=== PATIENT | female | born 2000 | race African-American/Black ===

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

== ENCOUNTER 2025-01-08 22:37 | Emergency (ER) | payer MEDICAID ==
[~2025-01-08] VITALS: Ht 165.1 cm; Wt 120.0 kg
[2025-01-08 22:45] VITALS: TEMP 36.9; O2SAT 100
[2025-01-09] MEDS: KETOROLAC 15MG/ML VIAL IM ONE (00:09)
[2025-01-09] MEDS ORDERED: LIDO-53 TP (00:17)
[2025-01-09] MEDS ORDERED: NAPR-1176 MT (00:17)
[2025-01-09 00:45] VITALS: BP 130/77; PULSE 62; RESP 18; O2SAT 100
== END 2025-01-09 01:00 | disposition home or self-care (01) ==
LOC: ER 23:10
DX: M25.571 Pain in right ankle and joints of right foot (principal); J45.909 Unspecified asthma, uncomplicated; Z79.1 Long term (current) use of non-steroidal anti-inflammatories (NSAID); W01.0XXA Fall on same level from slipping, tripping and stumbling without subsequent striking against object, initial encounter; Y93.41 Activity, dancing; Y92.89 Other specified places as the place of occurrence of the external cause; Y99.8 Other external cause status
CPT/HCPCS: 73610; 73630; 99284; 96372; J1885; A6449; Z7610